=== PATIENT | male | born 1985 | race American Indian/Alaskan Native ===

== ENCOUNTER 2021-07-08 22:00 | Emergency (ER) | payer SELFPAY ==
[2021-07-08 22:26] VITALS: BP 144/96
== END 2021-07-09 11:02 | disposition left against medical advice (07) ==
LOC: ED 22:00
DX: R11.0 Nausea (principal); R50.9 Fever, unspecified; Z53.21 Procedure and treatment not carried out due to patient leaving prior to being seen by health care provider